=== PATIENT | male | born 1935 | race Caucasian/White ===

== ENCOUNTER 2020-07-03 12:57 | Outpatient (CLI) | payer MEDICARE, BC, SELFPAY ==
--- NOTE | ~2020-07-03 | CT_ITS ---
EXAMINATION: CTA brain carotid DATE: 07/03/2020 13:49 INDICATION: Headache. Left carotid stenosis. TECHNIQUE: Computed tomographic angiography (CTA) of the head was performed without and with 100 mL O mnipaque-350 intravenous contrast. CTA of the neck was performed with intravenous contrast. Automated exposure control and iterative reconstruction technique were employed. The dose-length product was 1 753.67 mGy-cm. Maximum intensity projection and volume rendered 3D-reconstructions were created by baldomero duarte technologist on a separate workstation. COMPARISON: None. FINDINGS: HEAD CTA: There is an old lacunar infarct in right thalamus. There are scattered areas of low attenua tion in the cerebral white matter, which is within normal limits for the patient's age. There is no i ntracranial hemorrhage, acute infarction, or abnormal intracranial mass lesion. The ventricles are no rmal in size. There are likely changes of ocular lens replacement surgeries. There is mild mucosal th ickening in the paranasal sinuses. The mastoid air cells are normal. The vertebral arteries are codom inant. There is no significant stenosis of basilar artery or the posterior cerebral arteries. There i s no significant stenosis of the intracranial internal carotid arteries or anterior or middle cerebra l arteries. Anterior communicating artery is normal. There is no aneurysm. NECK CTA: Emphysema is noted. There are no pathologically enlarged lymph nodes. There is no significa nt stenosis of right vertebral artery. There is moderate stenosis of left vertebral artery origin. Th ere is plaque in the proximal internal carotid arteries. There is 5% stenosis of the proximal right internal carotid artery relative to normal distal artery l umen diameter (NASCET criteria). There is 45% stenosis of the proximal left internal carotid artery r elative to normal distal artery lumen diameter. There is severe cervical spondylosis. IMPRESSION: 1. 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 2. 5% stenosis of the proximal right internal carotid artery relative to normal distal artery lumen diameter (NASCET criteria). 3. 45% stenosis of the proximal left internal carotid artery relative to normal distal artery lumen d iameter. Reviewed, dictated and finalized at location B. [employer] IMPRESSION: 1. 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 2. 5% stenosis of the proximal right internal carotid artery relative to romina l distal artery lumen diameter (NASCET criteria). 3. 45% stenosis of the proximal left internal carotid artery relative to normal distal artery lumen diameter.
[2020-07-03 13:30] LABS: Estimated Glomerular Filt Rate 58
== END 2020-07-03 12:58 | disposition home or self-care (01) ==
PROVIDERS: PCP Internal Medicine
DX: I65.22 Occlusion and stenosis of left carotid artery (principal); Z86.73 Personal history of transient ischemic attack (TIA), and cerebral infarction without residual deficits
CPT/HCPCS: 70496; 70498; Q9967